=== PATIENT | male | born 1960 | race Caucasian/White ===

== ENCOUNTER 2020-11-23 07:28 | Day surgery (SDC) | payer BC ==
[2020-11-23] MEDS ORDERED: NA CHLORIDE 0.9% 1,000 ML ONE (08:21)
[2020-11-23] MEDS ORDERED: propofoL 200 MG/20 ML VIAL IV ONE (08:50)
[2020-11-23] MEDS ORDERED: LIDOCAINE 1% MPF 5 ML VIAL ONE (08:50)
--- NOTE | 2020-11-23 09:14 | ENDO RPT ---
[address], [address] COLONOSCOPY PROCEDURE REPORT EXAM DATE: 11/23/2020 PATIENT NAME: Shubham Paul MR #: [id number] BIRTHDATE: 1960 ATTENDING: Artem Carranza DR STATUS: outpatient SPLUNK CONSULTANT: Eli Nunez RN and Megan Walsh CST INDICATIONS: The patient is a 59 yr old Male here for a colonoscopy due to colon cancer screening PROCEDURE PERFORMED: Colonoscopy with biopsy MEDICATIONS: Per Anesthesia. ESTIMATED BLOOD LOSS: None CONSENT: The patient understands the risks and benefits of the procedure and understands that these risks include, but are not limited to: sedation, allergic reaction, infection, perforation and/or bleeding. Alternative means of evaluation and treatment include, among others: physical exam, x-rays, and/or surgical intervention. The patient elects to proceed with this endoscopic procedure. DESCRIPTION OF PROCEDURE: During intra-op preparation period all mechanical medical equipment was checked for proper function. Hand hygiene and appropriate measures for infection prevention was taken. Procedure, possible complications, alternatives including, but not limited to possibility of bleeding, perforation, tear, infection, sepsis, need for surgery, need for blood transfusion, were explained to the patient. After the risks, benefits and alternatives of the procedure were thoroughly explained, Informed consent was verified, confirmed and timeout was successfully executed by the treatment team. The patient was placed in the left lateral position. A digital rectal exam was performed and revealed internal hemorrhoids. After appropriate level of anesthesia, the scope was passed. The EC-[id number] ([id number]) endoscope was introduced through the anus and advanced to the cecum, which was identified by both the appendix and ileocecal valve. The quality of the prep was fair. The instrument was then slowly withdrawn as the colon was fully examined. Scope withdrawal time was 10 minutes. COLON FINDINGS: A small patch of atrophic abnormal mucosa was found in the right colon and sigmoid colon. The mucosa was atrophic, erythematous, ulcerated and had petechiae. Multiple biopsies of the lesion were performed using cold forceps. Retroflexed views revealed small hemorrhoids. The scope was then completely withdrawn from the patient and the procedure terminated. ADVERSE EVENTS: There were no complications. IMPRESSIONS: Small abnormal mucosa was found in the right colon and sigmoid colon; The mucosa was atrophic, erythematous, ulcerated and had petechiae; multiple biopsies of the lesion were performed RECOMMENDATIONS: 1. avoid NSAIDS for 2 weeks 2. await biopsy results 3. fiber rich diet 4. follow-up: office 2 week(s) 5. Monitor for any evidence of rectal bleeding. 6. hemorrhoidal hygiene 7. yearly hemoquant RECALL: for Colonoscopy, pending biopsy results. Artem Carranza DR eSigned: Artem Carranza DR 11/23/2020 9:14 AM cc: CPT CODES: ICD9 CODES: PATIENT NAME: Shubham Paul MR#: [id number]
[2020-11-23 09:49] VITALS: BP 116/78; TEMP 97.3; O2SAT 96
== END 2020-11-23 10:05 | disposition home or self-care (01) ==
LOC: OR 07:28
PROVIDERS: ATTEND Surgery
PROC: 0DBN8ZX Excision of Sigmoid Colon, Via Natural or Artificial Opening Endoscopic, Diagnostic (ICD-10-PCS; 2020-11-23)
PROC: 0DBF8ZX Excision of Right Large Intestine, Via Natural or Artificial Opening Endoscopic, Diagnostic (ICD-10-PCS; principal; 2020-11-23 08:30)
DX: Z12.11 Encounter for screening for malignant neoplasm of colon (principal); K62.89 Other specified diseases of anus and rectum; K52.9 Noninfective gastroenteritis and colitis, unspecified; Z20.822 Contact with and (suspected) exposure to COVID-19
CPT/HCPCS: 82947; 88305; 45380; U0002; J2704; J7030

== ENCOUNTER 2022-01-01 14:43 | Emergency (ER) | payer BC ==
[2022-01-01 15:22] LABS: Absolute Lymphocytes (CBC) 1.7 K/uL (0.7-4.9); Hematocrit 51.2 % (39.6-49.0); Lymphocytes % 15.2 % (15.3-44.8); MPV 9.1 fL (7.6-11.3); RBC Red Blood Cell Count 5.89 M/uL (4.33-5.43)
--- NOTE | 2022-01-01 15:37 | RAD REPORT ---
EXAM DESCRIPTION: RAD - Chest Single View - 01/01/2022 3:27 pm CLINICAL HISTORY: Cough Chest pain. COMPARISON: <Comparisons> FINDINGS: Portable technique limits examination quality. Mild prominence of the interstitial markings in both lung bases could be related to a mild viral infe ction. Reactive airway disease can have a similar appearance. The heart is normal in size. No displac ed fractures.
[2022-01-01 15:51] LABS: NT PRO-BNP 26 pg/mL (<125)
[2022-01-01 15:53] LABS: Troponin High Sensitivity < 3.0 pg/mL (<58.9)
--- NOTE | 2022-01-01 16:37 | EDPHYS ---
Physician Documentation [facility] Name: Shubham Paul Age: 61 yrs Sex: Male : 1960 Arrival Date: 01/01/2022 Time: 14:45 Bed 16 Private MD: Ela Mac ED Physician Frank Gallagher HPI: 01/01 15:17 This 61 yrs old Male presents to ER via Ambulatory with complaints of Shortness Of kb Breath. 15:17 Pt reports cough, congestion and scratchy throat for 7 days. Last night he woke up with kb shortness of breath. Went to urgent care and was told it could be his heart so he was referred to the ER. 15:18 The patient or guardian reports cough, that is intermittent, described as mild, kb difficulty breathing. Onset: The symptoms/episode began/occurred 7 day(s) ago, and became worse last night. Severity of symptoms: At their worst the symptoms were mild, moderate, in the emergency department the symptoms are unchanged. Modifying factors: The symptoms are alleviated by nothing, the symptoms are aggravated by nothing. Associated signs and symptoms: Pertinent positives: sore throat, Pertinent negatives: chest pain, fever. The patient has not experienced similar symptoms in the past. The patient has been recently seen by a physician:. Historical: - Allergies: 14:51 Dilaudid; hb - PMHx: 14:51 Diabetes mellitus; High Cholesterol; hb - PSHx: 14:51 None; hb - Immunization history:: Adult Immunizations up to date. - Social history:: Smoking status: Patient denies any tobacco usage or history of. ROS: 15:18 Constitutional: Negative for fever, chills, and weight loss. kb 15:18 ENT: Positive for sinus congestion, sore throat. 15:18 Respiratory: Positive for cough, shortness of breath, Negative for dyspnea on exertion, hemoptysis, orthopnea, pleurisy, sputum production, wheezing. 15:18 All other systems are negative. Exam: 15:18 Constitutional: This is a well developed, well nourished patient who is awake, alert, kb and in no acute distress. Head/Face: Normocephalic, atraumatic. ENT: Moist Mucous membranes Chest/axilla: Normal chest wall appearance and motion. Cardiovascular: Regular rate and rhythm with a normal S1 and S2. No gallops, murmurs, or rubs. No pulse deficits. Respiratory: Respirations even and unlabored. No increased work of breathing. Talking in full sentences Abdomen/GI: Soft, non-tender. No distention Skin: Warm, dry with normal turgor. Normal color. MS/ Extremity: Pulses equal, no cyanosis. Neurovascular intact. Full, normal range of motion. Neuro: Awake and alert, GCS 15, oriented to person, place, time, and situation. Moves all extremities. Normal gait. Psych: Awake, alert, with orientation to person, place and time. Behavior, mood, and affect are within normal limits. 15:22 ECG was reviewed by the Attending Physician. kb Vital Signs: 14:50 BP 130 / 95; Pulse 113; Resp 20; Temp 98.9(TE); Pulse Ox 97% on R/A; Weight 115.67 kg; hb Height 5 ft. 10 in. (177.80 cm); Pain 0/10; 15:46 BP 142 / 103; Pulse 104; Resp 20; Pulse Ox 97% ; Pain 0/10; ko1 14:50 Body Mass Index 36.59 (115.67 kg, 177.80 cm) hb MDM: 14:46 Patient medically screened. kb 15:17 Data reviewed: vital signs, nurses notes. Data interpreted: Pulse oximetry: on room air kb is 97 %. Interpretation: normal. 16:36 Counseling: I had a detailed discussion with the patient and/or guardian regarding: the kb historical points, exam findings, and any diagnostic results supporting the discharge/admit diagnosis, lab results, radiology results, the need for outpatient follow up, a family practitioner, to return to the emergency department if symptoms worsen or persist or if there are any questions or concerns that arise at home. 01/01 14:54 Order name: CBC with Diff; Complete Time: 15:23 kb 01/01 14:54 Order name: Basic Metabolic Panel; Complete Time: 15:56 kb 01/01 14:54 Order name: Flu; Complete Time: 16:35 kb 01/01 14:54 Order name: Strep; Complete Time: 16:35 kb 01/01 14:54 Order name: COVID-19 SARS RT PCR (Document "Date of Onset" if Symptomatic); Complete kb Time: 15:41 09/24 14:54 Order name: D-Dimer; Complete Time: 15:33 kb 01/01 14:54 Order name: IV Start; Complete Time: 15:14 kb 01/01 14:54 Order name: EKG; Complete Time: 14:54 kb 01/01 14:54 Order name: EKG - Nurse/Tech; Complete Time: 15:36 kb 01/01 14:54 Order name: Chest Single View XRAY; Complete Time: 15:41 kb 01/01 15:24 Order name: BNP; Complete Time: 15:56 kb 01/01 15:24 Order name: Troponin High Sensitivity; Complete Time: 15:56 kb 01/01 16:29 Order name: Throat Culture EDMS EC: Rate is 104 beats/min. Rhythm is regular. QRS Stuart is Normal. MD interval is normal at kb 156 msec. QRS interval is normal at 84 msec. QT interval is normal at 444 msec. Administered Medications: No medications were administered Disposition: 16:58 Co-signature as Attending Physician, Frank Gallagher MD. rn Disposition Summary: 01/01/22 16:36 Discharge Ordered Location: Home kb Condition: Stable kb Diagnosis - Acute bronchitis, unspecified kb Followup: kb - With: Emergency Department - When: As needed - Reason: Worsening of condition Followup: kb - With: Private Physician - When: 2 - 3 days - Reason: Recheck today's complaints, Continuance of care, Re-evaluation by your physician Discharge Instructions: - Discharge Summary Sheet kb - Acute Bronchitis, Adult, [id number] kb Forms: - Medication Reconciliation Form kb - Thank You Letter kb - Antibiotic Education kb - Prescription Opioid Use kb Prescriptions: - Prednisone 20 mg Oral Tablet - take 1 tablet by ORAL route once daily for 5 days; 5 tablet; Refills: 0, kb Product Selection Permitted - albuterol sulfate 90 mcg/actuation Inhalation HFA aerosol inhaler - inhale 2 puff by INHALATION route every 4-6 hours As needed; 1 Inhaler; kb Refills: 0, Product Selection Permitted Signatures: Dispatcher [employer] EDAgatha Izaguirre, RFP WRITER-C RFP WRITER-Frank Mary MD MD rn Baxter, Heather, RN RN hb Corrections: (The following items were deleted from the chart) 14:52 14:51 Allergies: No Known Allergies; hb hb
--- NOTE | 2022-01-01 16:37 | ER ---
Nurse's Notes [facility] Name: Shubham Paul Age: 61 yrs Sex: Male : 1960 Arrival Date: 01/01/2022 Time: 14:45 Bed 16 Private MD: Ela Mac Diagnosis: Acute bronchitis, unspecified Presentation: 01/01 14:49 Chief complaint: Chief complaint: Congestion, scratchy throat, and cough x 1 week, SOB hb since last night. 14:50 Coronavirus screen: At this time, the client does not indicate any symptoms associated hb with coronavirus-19. Ebola Screen: No symptoms or risks identified at this time. Risk Assessment: Do you want to hurt yourself or someone else? Patient reports no desire to harm self or others. Onset of symptoms was December 31, 2021. 14:50 Method Of Arrival: Ambulatory hb 14:50 Acuity: KONG 3 hb Historical: - Allergies: 14:51 Dilaudid; hb - PMHx: 14:51 Diabetes mellitus; High Cholesterol; hb - PSHx: 14:51 None; hb - Immunization history:: Adult Immunizations up to date. - Social history:: Smoking status: Patient denies any tobacco usage or history of. Screenin:46 Abuse screen: Denies threats or abuse. Denies injuries from another. Nutritional ko1 screening: No deficits noted. Tuberculosis screening: No symptoms or risk factors identified. Fall Risk None identified. IV access (20 points). Assessment: 15:46 General: Appears in no apparent distress. comfortable, Behavior is calm, cooperative, ko1 appropriate for age. Pain: Denies pain. Neuro: No deficits noted. Cardiovascular: No deficits noted. Rhythm is sinus tachycardia. Respiratory: No deficits noted. Airway is patent Respiratory effort is even, unlabored. Respiratory: Breath sounds are clear bilaterally. GI: No deficits noted. : No deficits noted. EENT: No deficits noted. Derm: No deficits noted. Musculoskeletal: No deficits noted. Vital Signs: 14:50 BP 130 / 95; Pulse 113; Resp 20; Temp 98.9(TE); Pulse Ox 97% on R/A; Weight 115.67 kg; hb Height 5 ft. 10 in. (177.80 cm); Pain 0/10; 15:46 BP 142 / 103; Pulse 104; Resp 20; Pulse Ox 97% ; Pain 0/10; ko1 14:50 Body Mass Index 36.59 (115.67 kg, 177.80 cm) hb ED Course: 14:45 Patient arrived in ED. mr 14:46 Ela Mac is Private Physician. mr 14:46 Ag[facility] Castro [facility]C [facility] kb 14:46 Frank Gallagher MD is Attending Physician. kb 14:51 Triage completed. hb 14:51 Arm band placed on. hb 15:14 Inserted saline lock: 18 gauge in left antecubital area, using aseptic technique. Blood mb8 collected. 15:16 Jammie Alva, RN is Primary Nurse. ko1 15:28 Chest Single View XRAY In Process Unspecified. EDMS 15:46 Patient has correct armband on for positive identification. Bed in low position. Call ko1 light in reach. Side rails up X 1. 16:57 No provider procedures requiring assistance completed. IV discontinued, intact, mb8 bleeding controlled, No redness/swelling at site. Pressure dressing applied. Administered Medications: No medications were administered Medication: 15:46 VIS not applicable for this client. ko1 Outcome: 16:36 Discharge ordered by MD. kb 16:57 Discharged to home ambulatory. mb8 16:57 Condition: stable 16:57 Discharge instructions given to patient, Instructed on discharge instructions, follow up and referral plans. medication usage, Demonstrated understanding of instructions, follow-up care, medications, Prescriptions given X 2. 16:58 Patient left the ED. mb8 Signatures: Dispatcher [employer] EDUT Agatha Castro FNP-C [facility]-Mundo VaughanaJamila WhiteStacey, RN JO Remberto Sidhu RN RN mb8 Jammie Alva, RN RN ko1 Corrections: (The following items were deleted from the chart) 14:52 14:51 Allergies: No Known Allergies; hb hb 14:54 14:50 Note Congestion, scratchy throat, cough, and SOB since last night. hb hb 14:54 14:50 Chief complaint: hb hb
[2022-01-03 03:23] VITALS: TEMP 98.9; O2SAT 97
[2022-01-03 03:28] VITALS: BP 142/103
--- NOTE | 2022-01-03 14:10 | EKG ---
Test Date: 2022-01-01 Test Time: 15:16:57 [employer] Pressure Vessels Inspector: MEASUREMENT RESULTS: Intervals: Rate: 104 IL: 156 QRSD: 84 QT: 338 QTc: 444 [place]: P: 55 IL: 156 QRS: -22 T: 30 INTERPRETIVE STATEMENTS: Sinus tachycardia Otherwise normal ECG Compared to ECG 04/04/2013 07:49:05 Sinus rhythm no longer present Electronically Signed On 01-03-22 14:09:10 CDT by Pa Ramos
== END 2022-01-01 16:58 | disposition home or self-care (01) ==
LOC: ER 14:43
DX: J20.9 Acute bronchitis, unspecified (principal); Z20.822 Contact with and (suspected) exposure to COVID-19
CPT/HCPCS: 93005; 87070; 85025; 80048; 36415; 85379; 87081; 84484; 83880; 87804 ×2; 71045; 99284; U0003